=== PATIENT | male | born 1965 | race African-American/Black ===

== ENCOUNTER 2017-10-24 18:48 | Emergency (ER) | payer OTHER ==
[~2017-10-24] VITALS: Ht 177.8 cm; Wt 83.9 kg
--- NOTE | 2017-10-24 19:01 | NUR ---
PT BB SELF C/O HIGH BLOOD PRESSURE TODAY, PT STATES BP AT HOME OF "200/119". PT SENT BY DR GAMBINO. PT IS AAOX4. PT STATES +HEADACHE, BLURRED VISSION, AND DIZZINESS X2 DAYS. -N/V/D. SKIN WNL. RESP EVEN AND UNLABORED. VSS. NO S/S OF DISTRESS NOTED. PT PLACED ON MONITOR AND POX. PT SAFETY AND COMFORT MEASURES IN PLACE. PT'S BEDSIDE. AWAITING MD FOR EVAL.
--- NOTE | 2017-10-24 19:18 | NUR ---
PHLEBOTOMY BEDSIDE TO COLLECT BLOOD SPECIMEN. BLOOD SPECIMEN SENT TO LAB.
--- NOTE | 2017-10-24 19:23 | NUR ---
EMT BEDSIDE FOR EKG
[2017-10-24 19:25] LABS: HEMOGLOBIN 14.6 g/dL (13.5-17.5)
[2017-10-24 19:28] LABS: HEMATOCRIT 40 % (39-51); MEAN CORPUSCULAR HGB CONC 36 g/dl (31.0-36.0); MEAN CORPUSCULAR VOLUME 88 fL (80-96); PLATELET COUNT (AUTO) 257 /CMM (150-450); RDW COEFFICIENT OF VARIATION 12.3 (11.5-15.0); RED BLOOD CELL COUNT(AUTO) 4.52 MIL/uL (4.5-6.0); WHITE BLOOD COUNT (AUTO) 7.9 K/uL (4.3-11.0)
[2017-10-24] MEDS ORDERED: LISINOPRIL 20MG TABLETS (19:52)
[2017-10-24] MEDS ORDERED: FENOFIBRATE 145 MG TABLET (19:52)
[2017-10-24] MEDS ORDERED: AMLODIPINE BESYLATE 10MG TABLE (19:52)
[2017-10-24] MEDS ORDERED: METOPROLOL (19:52)
[2017-10-24] MEDS ORDERED: ROSUVASTATIN CALCIUM 20 MG TAB (19:52)
[2017-10-24] MEDS ORDERED: SUCCINATE (19:52)
[2017-10-24] MEDS ORDERED: HYDRALAZINE 100 MG (19:52)
[2017-10-24 19:57] LABS: CALCIUM, SERUM 8.5 mg/dL (8.5-10.1); CARBON DIOXIDE 24 mmol/L (21-32); CHLORIDE 99 mmol/L (98-107); CREATININE 0.9 mg/dL (0.6-1.3); GLUCOSE 201 mg/dL (74-106); POTASSIUM 3.1 mmol/L (3.5-5.1); SODIUM SERUM 137 mmol/L (136-145); UREA NITROGEN, BLOOD 12 mg/dL (7-18)
[2017-10-24 20:06] LABS: TROPONIN I < 0.017 ng/mL (0.00-0.056)
[2017-10-24] MEDS ORDERED: hydrALAZINE HCL IV 20 MG VIAL ONE (20:12)
[2017-10-24] MEDS: hydrALAZINE HCL IV 20 MG VIAL IV ONE (20:16)
[2017-10-24 20:31] LABS: BAND % (MANUAL) 2 % (0.0-5.0); EOSINOPHILS % (MANUAL) 2 % (0-4); LYMPHOCYTES % (MANUAL) 32 % (16-48); MONOCYTES % (MANUAL) 2 % (0-11.0); NEUTROPHILS % (MANUAL) 62 (42-76)
[2017-10-24] MEDS ORDERED: POTASSIUM CHLORIDE 20 MEQ POWDER PACKET ONE (20:33)
[2017-10-24] MEDS ORDERED: POTASSIUM CHLORIDE 20 MEQ TAB.PRT.SR PO ONE (20:44)
[2017-10-24] MEDS: POTASSIUM CHLORIDE 20 MEQ TAB.PRT.SR PO ONE (20:47)
--- NOTE | 2017-10-24 20:52 | NUR ---
Patient discharged to home in stable condition. Written and verbal after care instructions given. Patient verbalizes understanding of instruction.IV removed. Catheter intact and site benign. Pressure and 4x4 applied to site. No bleeding noted. VSS upon discharge.
[2017-10-24 20:53] VITALS: BP 170/92
== END 2017-10-24 20:54 | disposition home or self-care (01) ==
LOC: ER 18:50
DX: I10 Essential (primary) hypertension (principal); E87.6 Hypokalemia; F17.200 Nicotine dependence, unspecified, uncomplicated
CPT/HCPCS: 36415; 71045-TC; 80048-TC; 84484-TC; 85025-TC; A4606; J0360; Z7610

== ENCOUNTER 2020-10-12 19:38 | Emergency (ER) | payer BC, OTHER ==
[~2020-10-12] VITALS: Ht 177.8 cm; Wt 79.4 kg
[~2020-10-12 19:38] MED LIST: AMLODIPINE BESYLATE 10MG TABLE; FENOFIBRATE 145 MG TABLET; HYDRALAZINE 100 MG; LISINOPRIL 20MG TABLETS; METOPROLOL; ROSUVASTATIN CALCIUM 20 MG TAB; SUCCINATE
--- NOTE | 2020-10-12 19:45 | NUR ---
pt bibself c/o high blood pressure. pt aaox4 breathing evenly and unlabored. 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 Pt attached to monitor and pox. pt given blanket and calllight within reach.
[2020-10-12] MEDS ORDERED: hydrALAZINE HCL IV 20 MG VIAL IV ONE (20:30)
--- NOTE | 2020-10-12 20:30 | NUR ---
rt hand 20g initiated
--- NOTE | 2020-10-12 20:30 | NUR ---
blood obtained and sent to lab
[2020-10-12] MEDS ORDERED: hydrALAZINE HCL IV 20 MG VIAL ONE (20:34)
--- NOTE | 2020-10-12 20:51 | NUR ---
xray at bedside
[2020-10-12 20:59] LABS: BASOPHILS % (AUTO) 0.5 % (0.0-2.0); EOSINOPHILS % (AUTO) 3.6 % (0.0-6.0); HEMATOCRIT 39 % (39-51); HEMOGLOBIN 13.3 g/dL (13.5-17.5); LYMPHOCYTES # (AUTO) 2.1 /CMM (0.8-4.8); LYMPHOCYTES % (AUTO) 25.9 % (20.0-44.0); MEAN CORPUSCULAR HGB CONC 34 g/dl (31.0-36.0); MEAN CORPUSCULAR VOLUME 91 fL (80-96); MONOCYTES # (AUTO) 0.6 /CMM (0.1-1.30); MONOCYTES % (AUTO) 7.1 % (2.0-12.0); NEUTROPHILS # (AUTO) 5.1 /CMM (1.8-8.9); NEUTROPHILS % (AUTO) 62.9 % (43.0-81.0); PLATELET COUNT (AUTO) 301 /CMM (150-450); RED BLOOD CELL COUNT(AUTO) 4.34 MIL/uL (4.5-6.0); WHITE BLOOD COUNT (AUTO) 8.1 K/uL (4.3-11.0)
[2020-10-12 21:19] LABS: CALCIUM, SERUM 9.2 mg/dL (8.5-10.1); CARBON DIOXIDE 26 mmol/L (21-32); CHLORIDE 103 mmol/L (98-107); CREATININE 0.9 mg/dL (0.6-1.3); GLUCOSE 118 mg/dL (74-106); POTASSIUM 3.7 mmol/L (3.5-5.1); SODIUM SERUM 139 mmol/L (136-145); UREA NITROGEN, BLOOD 19 mg/dL (7-18)
[2020-10-12 21:25] LABS: ALANINE AMINOTRANSFERASE 22 U/L (12-78); ALBUMIN 3.8 g/dL (3.4-5.0); ALKALINE PHOSPHATASE 72 U/L (46-116); ASPARTATE AMINOTRANSFERASE 22 U/L (15-37); BILIRUBIN,DIRECT 0.1 mg/dL (0.0-0.2); BILIRUBIN,TOTAL 0.6 mg/dL (0.2-1.0); TOTAL PROTEIN, SERUM 7.6 g/dL (6.4-8.2)
--- NOTE | 2020-10-12 22:09 | NUR ---
Patient discharged to home in stable condition. Written and verbal after care instructions given. Patient verbalizes understanding of instruction. IV removed. Catheter intact and site benign. Pressure and 4x4 applied to site. No bleeding noted. Pt ambulatory with a steady gait
[2020-10-12 22:11] VITALS: BP 166/97
== END 2020-10-12 22:09 | disposition home or self-care (01) ==
LOC: ER 19:43
DX: I10 Essential (primary) hypertension (principal); F17.200 Nicotine dependence, unspecified, uncomplicated; Z98.890 Other specified postprocedural states; Z79.899 Other long term (current) drug therapy
CPT/HCPCS: 36415; 71045; 80048; 80076; 84484; 85025; 93005; 96374; 99285; J0360

== ENCOUNTER 2024-09-04 11:13 | Emergency (ER) | payer BC, OTHER ==
[~2024-09-04] VITALS: Ht 177.8 cm; Wt 77.1 kg
[2024-09-04 11:45] VITALS: BP 112/76; TEMP 98.3; O2SAT 98
== END 2024-09-04 13:13 | disposition left against medical advice (07) ==
LOC: ER 11:16
DX: J11.1 Influenza due to unidentified influenza virus with other respiratory manifestations (principal); Z53.21 Procedure and treatment not carried out due to patient leaving prior to being seen by health care provider

== ENCOUNTER 2025-01-21 13:17 | Emergency (ER) | payer OTHER ==
[~2025-01-21] VITALS: Ht 177.8 cm; Wt 65.8 kg
[2025-01-21] MEDS ORDERED: ONDANSETRON HCL/PF 4 MG/2 ML VIAL ONE (13:58)
[2025-01-21 14:05] LABS: PLATELET COUNT (AUTO) 267 K/uL (150-450); RED BLOOD CELL COUNT(AUTO) 4.57 MIL/uL (4.5-6.0); RED CELL DISTRIBUTION WIDTH 13.3 % (11.5-15.0); WHITE BLOOD COUNT (AUTO) 7.0 K/uL (4.3-11.0)
[2025-01-21] MEDS: ONDANSETRON HCL/PF 4 MG/2 ML VIAL IVP ONE (14:09)
[2025-01-21] MEDS: IV NS 0.9% 1,000 ML BAG IV ONE (14:09)
[2025-01-21] MEDS ORDERED: MECLIZINE HCL 25 MG TABLET ONE (14:13)
[2025-01-21 14:14] LABS: CALCIUM, SERUM 9.2 mg/dL (8.5-10.1); CREATININE 0.6 mg/dL (0.6-1.3); SODIUM SERUM 141.0 mmol/L (136-145); UREA NITROGEN, BLOOD 7.0 mg/dL (7-18)
[2025-01-21] MEDS: MECLIZINE HCL 25 MG TABLET PO ONE (14:15)
[2025-01-21 14:20] LABS: ASPARTATE AMINOTRANSFERASE 20.0 U/L (15-37); TOTAL PROTEIN, SERUM 7.8 g/dL (6.4-8.2)
[2025-01-21 14:43] LABS: APPEARANCE,URINE CLEAR (CLEAR); BLOOD, URINE NEGATIVE Ery/uL (NEGATIVE); LEUKOCYTE ESTERASE ,URINE NEGATIVE (NEGATIVE); NITRITE, URINE NEGATIVE (NEGATIVE); UGLUCOSE NEGATIVE (NEGATIVE)
[2025-01-21 15:04] LABS: ADD URINE CULTURE NO; SQUAMOUS EPITHELIAL CELL,UR 0-2 /HPF (None Seen)
[2025-01-21] MEDS ORDERED: MECL-159 PO (15:05)
[2025-01-21] MEDS ORDERED: ONDA4TAB5 PO (15:05)
[2025-01-21 15:17] VITALS: BP 133/78; TEMP 97.9; O2SAT 99
== END 2025-01-21 15:18 | disposition home or self-care (01) ==
LOC: ER 13:25
DX: R42 Dizziness and giddiness (principal); R11.2 Nausea with vomiting, unspecified; E11.9 Type 2 diabetes mellitus without complications; F17.200 Nicotine dependence, unspecified, uncomplicated; I10 Essential (primary) hypertension
CPT/HCPCS: 99283; 96374; 96361; 85025; 80048; 83690; 80076; 81001; 36415; J8597; J2405; J7030